=== PATIENT | female | born 1980 | race Caucasian/White ===

== ENCOUNTER 2017-09-19 21:37 | Emergency (ER) | payer OTHER ==
[~2017-09-19] VITALS: Ht 172.7 cm; Wt 133.0 kg
[2017-09-19 21:43] VITALS: TEMP 36.5; Ht 172.7 cm; Wt 133.0 kg
[2017-09-19 22:03] VITALS: O2SAT 94
[2017-09-19] MEDS ORDERED: ASPIRIN 81 MG CHEW PO STA (22:19)
[2017-09-19] MEDS ORDERED: NITROGLYCERIN 0.4 MG SL PER TAB CHARGE SL STA (22:19)
[2017-09-19 22:39] LABS: BASO % 0.4 %; BASO ABS # 0.03 K/uL (0-0.2); EOS % 2.6 %; EOS ABS # 0.21 K/uL (0-0.5); HEMOGLOBIN 11.7 g/dL (12.0-16.0); IG# 0.03 K/uL (0.00-0.02); LYMPH % 18.7 %; LYMPH ABS # 1.53 K/uL (1.2-3.4); MEAN CELL VOLUME 80.2 fL (80-100); MEAN CORPUSCULAR HEMOGLOBIN 26.1 pg (25-34); MEAN CORPUSCULAR HGB CONC 32.5 g/dl (32-36); MONO % 5.3 %; MONO ABS # 0.43 K/uL (0.11-0.59); NEUT % 72.6 %; NEUT ABS # 5.96 K/uL (1.4-6.5); PLATELET COUNT 277 K/uL (130-400); RED CELL DISTRIBUTION WIDTH CV 13.9 % (11.5-14.5); RED CELL DISTRIBUTION WIDTH SD 40.4 fL (36.4-46.3); WHITE BLOOD COUNT 8.19 K/uL (4.8-10.8)
--- NOTE | 2017-09-19 22:40 | DIAGNOSTIC IMAGING REPORT ---
CHEST ONE VIEW PORTABLE HISTORY: 36 years-old Female CHEST PAIN acute atypical chest pain COMPARISON: None available TECHNIQUE: Portable AP view of the chest FINDINGS: Cardiac silhouette is upper limits of normal in size. Mediastinal contours are within normal limits. There is no pneumothorax, pleural effusion, focal airspace consolidation or overt pulmonary edema. Bones of the chest appear grossly intact. IMPRESSION: No acute process. The above report was generated using voice recognition software. It may contain grammatical, syntax or spelling errors. Electronically signed by: Jefferson Ashby M.D. 09/19/2017 10:39 PM Dictated Date/Time: 09/19/2017 10:37 PM
[2017-09-19 22:57] LABS: ALBUMIN 3.8 gm/dl (3.4-5.0); ALT/SGPT 50 U/L (12-78); BLOOD UREA NITROGEN 13 mg/dl (7-18); CALCIUM 9.2 mg/dl (8.5-10.1); CARBON DIOXIDE 25 mmol/L (21-32); CREATININE 0.94 mg/dl (0.60-1.20); GLUCOSE 115 mg/dl (70-99); LIPASE 111 U/L (73-393); POTASSIUM 3.4 mmol/L (3.5-5.1); SODIUM 138 mmol/L (136-145)
[2017-09-19] MEDS ORDERED: ONDANSETRON INJ 2 MG/ML 2 ML VIAL ONE (22:59)
[2017-09-19 23:02] LABS: ALKALINE PHOSPHATASE 97 U/L (45-117); AST/SGOT 80 U/L (15-37); TOTAL PROTEIN 7.2 gm/dl (6.4-8.2)
[2017-09-20 03:14] VITALS: BP 141/60; PULSE 58; O2SAT 98
--- NOTE | 2017-09-20 03:40 | Medical Consult ---
Consultation Date of Consultation: Sep 20, 2017. Attending Physician: Dr Cai Reason for Consultation: chest pain History of Present Illness This is a 36 yo f with no known past medical history that presents to us with acute onset epigastric pain concerning for potential cardiac source. The patient states that at approx 2030 she had sudden onset sharp pain in the epigastric region which quickly radiated to the left upper quadrant and a little to the left flank. It was 10/10 and so sudden it caused her to feel nauseated and throw up. Immediately after throwing up she felt tingling in her left hand which resolved after a few moments. The intensity of the epigastric pain as well as the radiation resolved after a short time and she described it as an 8/10 when she was in the ED. She states that very soon after she received one dose of NTG her symptoms completely resolved and she got a mild headache as a result of the medicine. She denies ever having pain like this in the past or having chest pain/ SOBOE. She states she smokes 3-4 cig/ day x 20 years and has a family history of cardiac disease in her father and grandparents on her father 's side. Her last meal was at 1700. patient does not have a PCP Past Medical/Surgical History Tobacco abuse Family History FH myocardial infarction male first degree age known FATHER, Onset:50's - 60 Social History Smoking Status: Current Every Day Smoker Smokeless Tobacco Use: No Alcohol Use: socially Drug Use: none Marital Status: Housing Status: lives with family Allergies Coded Allergies: No Known Allergies (Unverified , 09/19/17) Review of Systems Constitutional: No fever, No chills, No sweats Eyes: No worsening of vision ENT: No hearing loss Respiratory: No cough, No sputum, No wheezing, No shortness of breath, No dyspnea on exertion, No dyspnea at rest Cardiovascular: + problem reported (epigastric pain), No chest pain, No palpitations Abdomen: + pain, + nausea, + vomiting, No diarrhea, No constipation, No GI bleeding Musculoskeletal: No joint pain, No muscle pain Genitourinary - Female: No dysuria, No hematuria Neurologic: No weakness, No vertigo, No balance problems Psychiatric: No depression symptoms Endocrine: No fatigue Hematologic / Lymphatic: No abnormal bleeding/bruising Integumentary: No rash Physical Exam Date Time Temp Pulse Resp B/P (MAP) Pulse Ox O2 Delivery O2 Flow Rate FiO2 09/20/17 03:14 58 16 141/60 98 09/20/17 02:10 57 09/20/17 01:33 61 18 134/67 96 Room Air 09/19/17 23:27 66 16 108/74 97 Room Air 09/19/17 22:55 61 14 129/70 97 Room Air 09/19/17 22:16 72 09/19/17 22:04 97 Room Air 09/19/17 22:04 81 20 144/81 97 Room Air 09/19/17 22:03 94 Room Air 09/19/17 21:43 36.5 76 20 145/88 97 Room Air General Appearance: no apparent distress, + obese Head: normocephalic, atraumatic Eyes: normal inspection ENT: normal ENT inspection Neck: supple Respiratory/Chest: normal breath sounds, no respiratory distress, no accessory muscle use Cardiovascular: regular rate, rhythm, no murmur, normal peripheral pulses Abdomen/GI: normal bowel sounds, non tender, soft, no organomegaly Back: normal inspection, no CVA tenderness, no muscle spasm, normal range of motion Extremities/Musculoskelatal: normal inspection, no calf tenderness, no pedal edema, normal range of motion Neurologic/Psych: no motor/sensory deficits, alert, normal mood/affect, normal reflexes, oriented x 3 Skin: normal color, warm/dry, no rash Lymphatic: no adenopathy Laboratory Results Last 24 Hours Test 09/19/17 22:15 09/19/17 22:20 09/20/17 00:00 09/20/17 02:40 White Blood Count 8.19 K/uL Red Blood Count 4.49 M/uL Hemoglobin 11.7 g/dL Hematocrit 36.0 % Mean Corpuscular Volume 80.2 fL Mean Corpuscular Hemoglobin 26.1 pg Mean Corpuscular Hemoglobin Concent 32.5 g/dl Platelet Count 277 K/uL Mean Platelet Volume 10.0 fL Neutrophils (%) (Auto) 72.6 % Lymphocytes (%) (Auto) 18.7 % Monocytes (%) (Auto) 5.3 % Eosinophils (%) (Auto) 2.6 % Basophils (%) (Auto) 0.4 % Neutrophils # (Auto) 5.96 K/uL Lymphocytes # (Auto) 1.53 K/uL Monocytes # (Auto) 0.43 K/uL Eosinophils # (Auto) 0.21 K/uL Basophils # (Auto) 0.03 K/uL RDW Standard Deviation 40.4 fL RDW Coefficient of Variation 13.9 % Immature Granulocyte % (Auto) 0.4 % Immature Granulocyte # (Auto) 0.03 K/uL Sodium Level 138 mmol/L Potassium Level 3.4 mmol/L Chloride Level 107 mmol/L Carbon Dioxide Level 25 mmol/L Anion Gap 7.0 mmol/L Blood Urea Nitrogen 13 mg/dl Creatinine 0.94 mg/dl Est Creatinine Clear Calc Drug Dose 117.3 ml/min Estimated GFR () 89.2 Estimated GFR (Non- 77.0 BUN/Creatinine Ratio 13.7 Random Glucose 115 mg/dl Calcium Level 9.2 mg/dl Total Bilirubin 0.5 mg/dl Direct Bilirubin 0.2 mg/dl Aspartate Amino Transf (AST/SGOT) 80 U/L Alanine Aminotransferase (ALT/SGPT) 50 U/L Alkaline Phosphatase 97 U/L Troponin I < 0.015 ng/ml Total Protein 7.2 gm/dl Albumin 3.8 gm/dl Lipase 111 U/L Bedside D-Dimer 448 ng/mlFEU Bedside Troponin I < 0.030 ng/ml < 0.030 ng/ml < 0.030 ng/ml Assessment & Plan This is a 36 yo f with no significant past medical history, a positive family history for [place] and a current smoker with a heart score of 3. The patient's labs and imaging were reviewed. Labs did not reveal any significant cause for the patient's pain and initial troponin was negative. On review of the EKG there was no findings indicative of ischemia or concerning for potential to evolve into ischemic findings. CXR was benign. What is interesting is that the patient' s pain was very sudden in the epigastric region and resolved with NTG making it suspicious for esophageal spasm. Based on physical exam and history patient is unlikely to be suffering from an NJ/ ischemic event. We discussed discharge with repeat troponin vs admission for chest pain r/o and patient preferred troponin repeat. As the troponin was negative at 6 hours patient was d/c home. We spoke with case management prior to discharge to see if we could arrange a follow up with a PCP for her as she would benefit from optimizing ASCVD risk factors considering her family history. We also discussed smoking cessation and patient reflected understanding of association of smoking with heart disease. Attending addendum: I have physically seen this patient, have supervised the medical residents activities, and agree with the H&P unless as otherwise noted. Assessment and Plan: Epigastric area discomfort/atypical chest pain-- The patient had a normal EKG, normal troponin levels baseline and in 6 hours, remainder of the laboratories were normal. She did have other symptoms of reflux, and her response to sublingual nitroglycerin was suspicious of esophageal spasm. She was advised on tobacco cessation, and arrangements have been made to further address in the outpatient setting minimizing her risk factors for Heart disease in the future, and also that of gastrointestinal symptoms as well.
--- NOTE | 2017-09-20 05:07 | EMERGENCY ROOM VISIT NOTE ---
History First contact with patient: 22:07 Chief Complaint: CHEST PAIN Stated Complaint: CHEST PAIN Nursing Triage Summary: substernal chest pain since 2029 this evening with nausea and vomting. pain is radiating into the left arm and back. pain is low sternal and improved slightly earlier after vomiting. pt had banana and PB crackers prior to episode. History of Present Illness The patient is a 36 year old female who presents to the Emergency Room with complaints of midsternal chest pain that radiates to her left shoulder and down her arm since 8:30 PM describes aching, ranging in severity 5 out of 10. Nothing makes it better or worse. Patient complains of nausea with the symptoms. Patient does smoke. Father had heart attack in his 50s and PE. Patient is not on control. No recent travel. Patient denies dyspnea, fever, chills, cough, congestion, back pain, leg pain, leg swelling, abdominal pain. She is tolerate by mouth fluids and food. No prior heart testing. She does not have a family care doctor. Review of Systems See HPI for pertinent positives & negatives. A total of 10 systems reviewed and were otherwise negative. Past Medical/Surgical History Cholecystectomy Social History Smoking Status: Current Every Day Smoker Alcohol Use: occasionally Drug Use: none Occupation Status: employed Current/Historical Medications No Active Prescriptions or Reported Meds Physical Exam Vital Signs Date Time Temp Pulse Resp B/P (MAP) Pulse Ox O2 Delivery O2 Flow Rate FiO2 09/20/17 03:14 58 16 141/60 98 09/20/17 02:10 57 09/20/17 01:33 61 18 134/67 96 Room Air 09/19/17 23:27 66 16 108/74 97 Room Air 09/19/17 22:55 61 14 129/70 97 Room Air 09/19/17 22:16 72 09/19/17 22:04 97 Room Air 09/19/17 22:04 81 20 144/81 97 Room Air 09/19/17 22:03 94 Room Air 09/19/17 21:43 36.5 76 20 145/88 97 Room Air Physical Exam VITALS: Vitals are noted on the nurse's note and reviewed by myself. Vital signs stable. GENERAL: Pleasant female, in no acute distress, nondiaphoretic, well-developed well-nourished. SKIN: The skin was without rashes, erythema, edema, or bruising. There is no tenting of the skin. Capillary reflex less than 2 seconds. HEAD: Normocephalic atraumatic. EARS: External auditory canals clear, tympanic membranes pearly bueno without erythema or effusion bilaterally. EYES: Pupils equal round and reactive to light and accommodation. Conjunctivae without injection, sclerae without icterus. Extraocular movements intact. NOSE: Patent, turbinates without inflammation or discharge. MOUTH: Mucous membranes moist. Pharynx without erythema or exudate. Uvula midline. Airway patent. Tongue does not deviate. NECK: Supple without nuchal rigidity. No lymphadenopathy. No thyromegaly. Cervical spine is nontender. No JVD. HEART: Regular rate and rhythm without murmurs gallops or rubs. Chest nontender to palpation LUNGS: Clear to auscultation bilaterally without wheezes, rales or rhonchi. No dullness to percussion. No retractions or accessory muscle use. ABDOMEN: Positive bowel sounds x 4. Normal tympanic percussion. Soft, nontender, without masses or organomegaly. Velasquez sign negative. No guarding or rebound tenderness. MUSCULOSKELETAL: No muscle atrophy, erythema, or edema noted. NEURO: Patient was alert and oriented to person place and time. Normal sensation to light and sharp touch. No focal neurological deficits. Medical Decision & Procedures Laboratory Results 09/19/17 22:15 Red Blood Count 4.49, Mean Corpuscular Volume 80.2, Mean Corpuscular Hemoglobin 26.1, Mean Corpuscular Hemoglobin Concent 32.5, Mean Platelet Volume 10.0, Neutrophils (%) (Auto) 72.6, Lymphocytes (%) (Auto) 18.7, Monocytes (%) (Auto) 5.3, Eosinophils (%) (Auto) 2.6, Basophils (%) (Auto) 0.4, Neutrophils # (Auto) 5.96, Lymphocytes # (Auto) 1.53, Monocytes # (Auto) 0.43, Eosinophils # (Auto) 0.21, Basophils # (Auto) 0.03 09/19/17 22:15 Test 09/19/17 22:15 09/19/17 22:20 09/20/17 02:40 White Blood Count 8.19 K/uL (4.8-10.8) Red Blood Count 4.49 M/uL (4.2-5.4) Hemoglobin 11.7 g/dL (12.0-16.0) Hematocrit 36.0 % (37-47) Mean Corpuscular Volume 80.2 fL (80-100) Mean Corpuscular Hemoglobin 26.1 pg (25-34) Mean Corpuscular Hemoglobin Concent 32.5 g/dl (32-36) Platelet Count 277 K/uL (130-400) Mean Platelet Volume 10.0 fL (7.4-10.4) Neutrophils (%) (Auto) 72.6 % Lymphocytes (%) (Auto) 18.7 % Monocytes (%) (Auto) 5.3 % Eosinophils (%) (Auto) 2.6 % Basophils (%) (Auto) 0.4 % Neutrophils # (Auto) 5.96 K/uL (1.4-6.5) Lymphocytes # (Auto) 1.53 K/uL (1.2-3.4) Monocytes # (Auto) 0.43 K/uL (0.11-0.59) Eosinophils # (Auto) 0.21 K/uL (0-0.5) Basophils # (Auto) 0.03 K/uL (0-0.2) RDW Standard Deviation 40.4 fL (36.4-46.3) RDW Coefficient of Variation 13.9 % (11.5-14.5) Immature Granulocyte % (Auto) 0.4 % Immature Granulocyte # (Auto) 0.03 K/uL (0.00-0.02) Anion Gap 7.0 mmol/L (3-11) Est Creatinine Clear Calc Drug Dose 117.3 ml/min Estimated GFR () 89.2 Estimated GFR (Non- 77.0 BUN/Creatinine Ratio 13.7 (10-20) Calcium Level 9.2 mg/dl (8.5-10.1) Total Bilirubin 0.5 mg/dl (0.2-1) Direct Bilirubin 0.2 mg/dl (0-0.2) Aspartate Amino Transf (AST/SGOT) 80 U/L (15-37) Alanine Aminotransferase (ALT/SGPT) 50 U/L (12-78) Alkaline Phosphatase 97 U/L (45-117) Troponin I < 0.015 ng/ml (0-0.045) Total Protein 7.2 gm/dl (6.4-8.2) Albumin 3.8 gm/dl (3.4-5.0) Lipase 111 U/L (73-393) Bedside D-Dimer 448 ng/mlFEU (0-450) Bedside Troponin I < 0.030 ng/ml (0-0.045) Medications Administered Medications (Trade) Dose Ordered Sig/Sukhwinder Route Start Time Stop Time Status Last Admin Dose Admin Nitroglycerin (Nitrostat Tab) 0.4 mg NOW STAT SL 09/19/17 22:19 09/19/17 22:21 DC 09/19/17 22:36 0.4 MG Aspirin (Aspirin Chew) 243 mg NOW STAT PO 09/19/17 22:19 09/19/17 22:21 DC 09/19/17 22:37 243 MG Ondansetron HCl (Zofran Inj) 4 mg STK-MED ONCE .ROUTE 09/19/17 22:59 09/19/17 23:00 DC 09/19/17 23:01 4 MG ED Course Prior records/ancillary studies reviewed. Triage Nursing notes reviewed. Additional history obtained from family. The patient's history was concerning for chest pain. Differential diagnosis: Etiologies such as cardiac ischemia, aortic dissection, pulmonary embolism, pneumonia, pneumothorax, musculoskeletal, infections, pericarditis, myocarditis , esophageal rupture, gastrointestinal, as well as others were entertained. Physical examination: As above. ER treatment provided: Aspirin, Nitropaste On reassessment the patient felt better. Diagnostic interpretation by me: The electrocardiogram was negative for pathologic change. Normal sinus, normal intervals, no acute ST-T wave changes. Impression normal sinus rhythm interpreted by myself The labs revealed negative troponin 2 greater than 4 hours apart. Negative d- dimer Imaging studies: Chest x-ray with no acute consolidation, pneumothorax or free air per my interpretation Consultation: A consultation was placed with the hospitalist, Dr. Fowler and resident. The case was discussed and diagnostics were reviewed. They state the patient is stable to be discharged home and have outpatient workup. Exam and history seem consistent with chest pain. Patient had a normal EKG and 2 negative troponins that were greater than 4 hours apart. Patient was strongly encouraged to follow-up family care next day or 2 for outpatient stress test and echo within the next week. She does have a family history of heart disease and she smokes. She has not seen a doctor in quite some time. Medicine evaluated the patient states she is stable to be discharged home. They feel like this is esophageal spasm. Case management to help facilitate this follow-up appointment. Patient was advised to return to the ER immediately for chest pain, difficulty breathing, worsening signs or symptoms or as needed. Patient was agreeable to treatment plan and ambulated out of the ER without difficulties. By the evaluation outlined above emergent etiologies such as cardiac ischemia, aortic dissection, pulmonary embolism, pneumonia, pneumothorax, infections, pericarditis, myocarditis, gastrointestinal, as well as others were deemed relatively unlikely. The pt informed about the findings as listed above. All questions were answered and pleased with the treatment. Return instructions were outlined and the patient was discharged in stable condition. Referral: The patient was referred back to primary care physician for follow-up in 2 to 3 days for a recheck of the current condition. Case reviewed with my attending Medical Decision As above Medication Reconcilliation Current Medication List: was personally reviewed by me Blood Pressure Screening Patient's blood pressure: Normal blood pressure Impression Primary Impression: Precordial chest pain Departure Information Dispostion Home / Self-Care Condition GOOD Prescriptions No Active Prescriptions or Reported Meds Forms Call Back Authorization, HOME CARE DOCUMENTATION FORM, IMPORTANT VISIT INFORMATION Patient Instructions Chest Pain - [facility], [facility] Additional Instructions Recommend further outpatient cardiac workup such as an echo and/or stress test within the next week or 2. Ibuprofen(Motrin, Advil) may be used for fever or pain. Use 600mg every six hours as needed. Take with food. Avoid using more than 2400mg in a 24 hour period. Do not use 2400mg per day for more than three consecutive days without physician direction. Prolonged inappropriate use can lead to stomach upset or ulcers. (AND/OR) Acetaminophen(Tylenol) may be used for fever or pain. Use 1000mg every six hours as needed. Avoid using more than 3000mg in a 24 hour period. Rest and drink plenty of fluids as tolerated. Continue current medications. Avoid strenuous activities and anything that worsens your pain. Resume normal activities once your symptoms resolve. Return to the ER immediately for worsening or persistent chest pain, abdominal pain, vomiting, fevers, chest pains, difficulty breathing, worsening of your condition, or as needed. Follow up with your primary physician in 2-3 days for a recheck of your current condition.
== END 2017-09-20 03:15 | disposition home or self-care (01) ==
LOC: C.EDB 21:38 → C.EDA 09-20 03:15
DX: R07.2 Precordial pain (principal); F17.200 Nicotine dependence, unspecified, uncomplicated